=== PATIENT | male | born 1980 | race Caucasian/White ===

== ENCOUNTER 2016-12-18 10:01 | Emergency (ER) | payer OTHER ==
[2016-12-18 10:24] VITALS: TEMP 98.8; BMI 35.4
[2016-12-18] MEDS ORDERED: SODIUM CHLORIDE 0.9% 10 ML FLUSH FLUSH PRN (11:28)
[2016-12-18] MEDS ORDERED: ASPIRIN (CHEWABLE) 81 MG TAB PO ONE (11:28)
[2016-12-18] MEDS ORDERED: NS 1,000 ML IV ONE (11:28)
[2016-12-18 11:37] LABS: AUTOMATED BASOPHIL 0.6 % (0-2); AUTOMATED EOSINOPHIL 0.7 % (0-5); AUTOMATED MONOCYTE 8.7 % (3-10); MPV 7.1 fL (7.4-10.4)
[2016-12-18 11:49] LABS: PARTIAL THROMB. TIME 24.8 SEC (22-35)
[2016-12-18 11:51] LABS: BLOOD UREA NITROGEN 14 MG/DL (9-20); CALCIUM 9.9 MG/DL (8.4-10.2); CALCULATED OSMOLALITY 273 MOs/Kg (270-290); CHLORIDE 102 mEq/L (98-107); CPK TOTAL WITH POSSIBLE MB 423 IU/L (55-170); GLUCOSE 88 MG/DL (70-99); SODIUM LEVEL 142 mEq/L (137-146); TOTAL PROTEIN 7.8 G/DL (6.3-8.2)
--- NOTE | 2016-12-18 12:14 | DIRPT ---
CLINICAL DATA: Chest pain while running on a treadmill today. EXAM: CHEST 2 VIEW COMPARISON: None. FINDINGS: Normal sized heart. Clear lungs. Normal vascularity. Normal appearing bones. Cholecystectomy clips. IMPRESSION: No acute abnormality. Electronically Signed By: Sam Matamoros M.D. On: 12/18/2016 12:11
--- NOTE | 2016-12-18 13:04 | EDPRACDOC ---
- General Information Chief Complaint: Chest Pain Stated Complaint: UPPER RIB CAGE PAIN Time Seen by Provider: 12/18/16 11:00 Information Source: Patient Mode of Arrival: Car Home Medications: Home Medications Fluticasone Propionate [Flonase Nasal Fabius] 1 - 2 spray BECK DAILY PRN 12/18/16 Allergies/Adverse Reactions: Allergies Allergy/AdvReac Type Severity Reaction Status Date / Time latex Allergy Headache Verified 12/18/16 10:17 - History of Present Illness Onset: FRI HPI: PT PRESENTS WITH DULL SUBSTERNAL CHEST PAIN THAT BEGAN WHILE HE WAS RUNNING ON THE TREADMILL FRIDAY. STATES THE PAIN SUBSIDED WHEN HE WENT TO SLEEP THAT NIGHT , DID NOT RETURN UNTIL HE WENT BACK TO THE GYM THIS MORNING AND BEGAN RUNNING ON THE TREADMILL AGAIN. PT DENIES NAUSEA OR VOMITING. DENIES SMOKING. DENIES ANY PMH OF HTN, DIABETES OR DYSLIPIDEMIA. DENIES ANY PAST FAMILY HISTORY OF CARDIAC ISSUES. PT HAS NEVER HAD A CARDIAC CATH OR STRESS TEST. Chest Pain Location: Reports: Substernal Pain Radiation: Reports: None Symptoms Occur: Reports: With heavy exertion Cardiac Risk Factors: Reports: None Cardiac History of: Reports: None PE Risk Factors: Reports: None Medications within 24 Hours: Reports: None Prehospital Care: Reports: None Pain Came On: Reports: Gradually Pain Status: Present Now Pain Description: Reports: Other (DULL - GAS LIKE) Pain Severity: Mild Pain Worsens With: Reports: Exertion Pain Improves With: Reports: Rest Associated Signs and Symptoms: Reports: None ED Past Medical History - History Reviewed Yes Nurses notes reviewed and agree except as marked - Patient Medical History Psychological History: Denies: Depression Surgical History: Reports: Cholecystectomy - Social Medical History Smoking Status: Never smoker EDM Review of Systems - Review of Systems ROS Negative Except as Marked: Yes All systems reviewed and were negative except as marked - Physical Exam Constitutional: Alert Oriented to: Time, Person, Place Last recorded Vital Signs: Last Vital Signs Temp 98.8 F 12/18/16 10:13 Pulse 85 12/18/16 11:56 Resp 18 12/18/16 11:56 BP 145/89 12/18/16 11:56 Pulse Ox 98 12/18/16 11:56 Oxygen Pulse Oxygen Saturation 98 O2 Device Room Air Oxygen Flow Rate Fraction of Inspired Oxygen ( FIO2) - HEENT Head: Normal ( normocephalic) Eye Exam: Normal (PERRL, EOMI, Sclera white) Oropharynx: Normal (Pharynx:Moist without exudate,Gums-no swelling) Nose: No Symptoms Reported (septum midline) Neck: Normal (FROM, trachea at midline) - Respiratory/Cardiovascular Respiratory: Normal - CTA (BBS clear to auscultation without adventitious sounds ) Cardiovascular: Normal (RRR without murmur, gallop or rub) - GI Auscultation: Normal (NABS) Palpation: Normal (Soft,No rebound or guarding, non distended) Tenderness: Non tender Hooper's Sign: Negative Rectal Exam: Deferred - Musculoskeletal Back: Normal (Non-Tender) Extremities: Normal (Normal tone, Pulses 2+ No cyanosis or edema, FROM) - Integumentary Skin: Normal, Warm, Dry Lymphatics: Normal (no adenopathy) - Neurologic Memory Impaired: Normal Motor Function: Normal (Normal tone, Pulses 2+ No cyanosis or edema, FROM) Cranial Nerve: Normal (CN II-X11 intact sensation, strength 5/5) Cerebellar: Normal Mood Description: Normal Perception: Normal ED Chest Pain Exam - Respiratory/Cardiovascular Respiratory: Normal - CTA Cardiovascular/Chest: Normal Radial Pulse: Normal Femoral Pulse: Normal Pedal Pulse: Normal Carotid Arteries: Normal Edema: negative: 1+, 2+, 3+, 4+, 5, 6 Chest Palpation: Normal - Differential Diagnosis Other - Action Patient received Aspirin within last 24 hours?: No ASA given in the ED: Yes Patient received Beta Nelson within last 24hrs: No - Results All Results Reviewed and Normal except as Highlighted below: Yes 12/18/16 11:00 12/18/16 11:00 WBC 7.4 xk/uL (3.8-10.8) 12/18/16 11:00 RBC 5.29 xM/uL (4.70-6.10) 12/18/16 11:00 Hgb 15.6 g/dL (14.0-18.0) 12/18/16 11:00 Hct 44.4 % (42-52) 12/18/16 11:00 MCV 84 fL (80-94) 12/18/16 11:00 MCH 29.4 pg (27-32) 12/18/16 11:00 MCHC 35.0 g/dl (33-36) 12/18/16 11:00 RDW 13.0 % (11.5-14.5) 12/18/16 11:00 Plt Count 270 xk/uL (130-400) 12/18/16 11:00 MPV 7.1 fL (7.4-10.4) L 12/18/16 11:00 Neut % (Auto) 69.0 % (45-76) 12/18/16 11:00 Lymph % (Auto) 21.0 % (17-44) 12/18/16 11:00 Twiggs % (Auto) 8.7 % (3-10) 12/18/16 11:00 Eos % (Auto) 0.7 % (0-5) 12/18/16 11:00 Baso % (Auto) 0.6 % (0-2) 12/18/16 11:00 Absolute Neuts (auto) 5.11 xk/uL (1.7-8.2) 12/18/16 11:00 Absolute Lymphs (auto) 1.55 xk/uL (0.65-4.75) 12/18/16 11:00 PT 10.7 SEC (9.2-11.2) 12/18/16 11:00 INR 1.0 12/18/16 11:00 APTT 24.8 SEC (22-35) 12/18/16 11:00 D-Dimer Quant (PE/DVT) 166 ng/mL (<500) 12/18/16 11:00 Sodium 142 mEq/L (137-146) 12/18/16 11:00 Potassium 4.2 mEq/L (3.5-5.1) 12/18/16 11:00 Chloride 102 mEq/L (98-107) 12/18/16 11:00 Carbon Dioxide 27 mMOL/L (22-33) 12/18/16 11:00 Anion Gap 17 mEq/L (8-16) H 12/18/16 11:00 BUN 14 MG/DL (9-20) 12/18/16 11:00 Creatinine 1.00 MG/DL (0.66-1.25) 12/18/16 11:00 Estimated GFR (MDRD) > 60 mL/min (>=60) 12/18/16 11:00 Glucose 88 MG/DL (70-99) 12/18/16 11:00 Calculated Osmolality 273 MOs/Kg (270-290) 12/18/16 11:00 Calcium 9.9 MG/DL (8.4-10.2) 12/18/16 11:00 Total Bilirubin 0.7 MG/DL (0.2-1.3) 12/18/16 11:00 AST 51 IU/L (17-59) 12/18/16 11:00 ALT 66 IU/L (21-72) 12/18/16 11:00 Alkaline Phosphatase 76 IU/L (38-126) 12/18/16 11:00 Creatine Kinase 423 IU/L (55-170) H 12/18/16 11:00 CK-MB (CK-2) 5.0 ng/mL (0-4.5) H 12/18/16 11:00 Troponin I < 0.01 ng/mL (<.04) 12/18/16 11:00 Jgt-[id number]-[id number] Pept 22 pg/mL (0-450) 12/18/16 11:00 Total Protein 7.8 G/DL (6.3-8.2) 12/18/16 11:00 Albumin 5.0 G/DL (3.5-5.0) 12/18/16 11:00 Lab Results 12/18/16 12/18/16 12/18/16 11:00 11:00 11:00 WBC 7.4 RBC 5.29 Hgb 15.6 Hct 44.4 MCV 84 MCH 29.4 MCHC 35.0 RDW 13.0 Plt Count 270 MPV 7.1 L Neut % (Auto) 69.0 Lymph % (Auto) 21.0 Twiggs % (Auto) 8.7 Eos % (Auto) 0.7 Baso % (Auto) 0.6 Absolute Neuts (auto) 5.11 Absolute Lymphs (auto) 1.55 PT 10.7 INR 1.0 APTT 24.8 D-Dimer Quant (PE/DVT) 166 Sodium Potassium Chloride Carbon Dioxide Anion Gap BUN Creatinine Estimated GFR (MDRD) Glucose Calculated Osmolality Calcium Total Bilirubin AST ALT Alkaline Phosphatase Creatine Kinase CK-MB (CK-2) Troponin I Nhb-[id number]-Mdokxfmuxkl Pept Total Protein Albumin 12/18/16 11:00 WBC RBC Hgb Hct MCV MCH MCHC RDW Plt Count MPV Neut % (Auto) Lymph % (Auto) Twiggs % (Auto) Eos % (Auto) Baso % (Auto) Absolute Neuts (auto) Absolute Lymphs (auto) PT INR APTT D-Dimer Quant (PE/DVT) Sodium 142 Potassium 4.2 Chloride 102 Carbon Dioxide 27 Anion Gap 17 H BUN 14 Creatinine 1.00 Estimated GFR (MDRD) > 60 Glucose 88 Calculated Osmolality 273 Calcium 9.9 Total Bilirubin 0.7 AST 51 ALT 66 Alkaline Phosphatase 76 Creatine Kinase 423 H CK-MB (CK-2) 5.0 H Troponin I < 0.01 Mvw-C-Yutricresua Pept 22 Total Protein 7.8 Albumin 5.0 Laboratory Results - last 24 hr 12/18/16 12/18/16 12/18/16 11:00 11:00 11:00 WBC 7.4 RBC 5.29 Hgb 15.6 Hct 44.4 MCV 84 MCH 29.4 MCHC 35.0 RDW 13.0 Plt Count 270 MPV 7.1 L Neut % (Auto) 69.0 Lymph % (Auto) 21.0 Twiggs % (Auto) 8.7 Eos % (Auto) 0.7 Baso % (Auto) 0.6 Absolute Neuts (auto) 5.11 Absolute Lymphs (auto) 1.55 PT 10.7 INR 1.0 APTT 24.8 D-Dimer Quant (PE/DVT) Sodium 142 Potassium 4.2 Chloride 102 Carbon Dioxide 27 Anion Gap 17 H BUN 14 Creatinine 1.00 Estimated GFR (MDRD) > 60 Glucose 88 Calculated Osmolality 273 Calcium 9.9 Total Bilirubin 0.7 AST 51 ALT 66 Alkaline Phosphatase 76 Creatine Kinase 423 H CK-MB (CK-2) 5.0 H Troponin I < 0.01 Vsp-N-Wetjtyakuje Pept 22 Total Protein 7.8 Albumin 5.0 12/18/16 11:00 WBC RBC Hgb Hct MCV MCH MCHC RDW Plt Count MPV Neut % (Auto) Lymph % (Auto) Twiggs % (Auto) Eos % (Auto) Baso % (Auto) Absolute Neuts (auto) Absolute Lymphs (auto) PT INR APTT D-Dimer Quant (PE/DVT) 166 Sodium Potassium Chloride Carbon Dioxide Anion Gap BUN Creatinine Estimated GFR (MDRD) Glucose Calculated Osmolality Calcium Total Bilirubin AST ALT Alkaline Phosphatase Creatine Kinase CK-MB (CK-2) Troponin I Qaz-O-Qnmnwetslbf Pept Total Protein Albumin Laboratory Results 12/18/16 11:00 12/18/16 11:00 - EKG EKG #1 EKG Time: 10:18 -: Yes EKG interpreted by me Rate: bpm: [address] [place]: Normal Rhythm: ST Block: None Hypertrophy: None ST: Normal Decision Time to Discharge: 13:07 - Departure Disposition: Home Condition: Stable Final Diagnosis: Atypical chest pain Instructions: Chest Pain (ED), Chest Wall Pain Education/Counseling Given To: Patient Education/Counseling Given Regarding: Diagnosis, Treatment, Prognosis, Follow Up Referrals: Nate Quesada MD [Staff Physician] - One Week Additional Instructions: FOLLOW UP WITH PCP NEXT WEEK. TAKE TYLENOL OR MOTRIN PRIOR TO WORKING OUT. RETURN TO THE ED FOR WORSENING SYMPTOMS OR CONCERNS.
[2016-12-18 13:19] VITALS: BP 149/90; PULSE 82
== END 2016-12-18 13:35 | disposition home or self-care (01) ==
LOC: ED 10:01 → SUPCPDRO 10:01 → ED 13:35
DX: R07.89 Other chest pain (principal)
CPT/HCPCS: 36415; 71020; 80053; 82550; 82553; 83880; 84484; 85025; 85379; 85610; 85730; 93005; 96360; 99284; J3490